=== PATIENT | female | born 1955 | race Two or more races ===

== ENCOUNTER → 2024-08-27 | Outpatient (CLI) | payer MEDICARE, MEDICAID, SELFPAY ==
[2024-08-27 16:36] LABS: Basophils # (Auto) 0.1 Thou/mm3 (0.0-0.2); Basophils % (Auto) 1 % (0-2.5); Eosinophils # (Auto) 0.2 Thou/mm3 (0.0-0.5); Eosinophils % (Auto) 3 % (0-10); Hematocrit 35.8 % (36.0-46.0); Immature Granulocytes % (Auto) 0 % (0-0); Lymphocytes % (Auto) 38 % (10-50); Mean Corpuscular HGB Conc 33.5 g/dl (31.0-37.0); Mean Corpuscular Hemoglobin 30.5 pg (25.0-35.0); Mean Corpuscular Volume 91 fL (80-100); Monocytes # (Auto) 0.3 Thou/mm3 (0.0-0.8); Monocytes % (Auto) 6 % (0-12); Neutrophils # (Auto) 2.7 Thou/mm3 (1.8-7.7); Neutrophils % (Auto) 52 % (37-80); Nucleated Red Blood Cell % 0 /100 WBC (0); Platelet Count 204 Thou/mm3 (140-440); RDW Standard Deviation 42.4 fL (36.4-46.3); Red Blood Count 3.94 Miln/mm3 (4.00-5.20); White Blood Count 5.2 Thou/mm3 (3.6-11.0)
[2024-08-27 17:04] LABS: Alanine Aminotransferase 20 U/L (10-49); Alkaline Phosphatase 48 U/L (46-116); Anion Gap 8 (7-16); Aspartate Amino Transferase 21 U/L (0-34); BUN/Creatinine Ratio 26 Ratio (12-20); Bilirubin,Direct < 0.1 mg/dL (0.0-0.3); Bilirubin,Total 0.3 mg/dL (0.3-1.2); Blood Urea Nitrogen 18 mg/dL (9-23); C-Reactive Protein < 0.4 mg/dL (0.0-0.9); Calcium 9.1 mg/dL (8.3-10.6); Carbon Dioxide 27.2 mMol/L (20.0-31.0); Chloride 105 mMol/L (98-107); Creatinine (Component) 0.7 mg/dL (0.6-1.3); Glucose 88 mg/dL (74-106); Osmolality,Calculated 280 (275-295); Potassium 3.9 mMol/L (3.4-5.1); Sodium 140 mMol/L (136-145); Total Protein 6.4 gm/dL (5.7-8.2); eGFR > 60 See Note
[2024-08-27 17:07] LABS: Ferritin 50 ng/mL (7.3-270.7)
[2024-08-27 17:31] LABS: Hepatitis A Antibody IgM Non Reactive (Non React); Hepatitis B Core Antibody IgM Non Reactive (Non React); Hepatitis B Surface Antigen Non Reactive (Non React); Hepatitis C Antibody Non Reactive (Non React)
[2024-08-27 18:06] LABS: Sed Rate (ESR) 8 mm/hr (0-30)
[2024-08-31 06:43] LABS: HIV Ag/Ab, 4th Gen NON-REACTIVE
== END | disposition home or self-care (01) ==
LOC: COPL 15:22
PROVIDERS: PCP Internal Medicine; Referring Provider Internal Medicine Gastroenterology; Visit Provider Internal Medicine Gastroenterology
DX: R13.19 Other dysphagia (principal)
CPT/HCPCS: 36415; 80048; 80074; 80076; 82728; 85025; 85610; 85652; 86140; 87389

== ENCOUNTER → 2024-09-04 | Outpatient (CLI) | payer MEDICARE, MEDICAID, SELFPAY ==
[2024-09-04 11:46] LABS: Quantiferon-TB* See Sep Rpt
[2024-09-11 06:55] LABS: Helicobacter pylori Ag, Stool* DETECTED (NOT DETECTED)
== END | disposition home or self-care (01) ==
PROVIDERS: PCP Internal Medicine; Referring Provider Internal Medicine Gastroenterology; Visit Provider Internal Medicine Gastroenterology
DX: R13.19 Other dysphagia (principal)
CPT/HCPCS: 86480; 87338

== ENCOUNTER 2025-04-27 23:57 | Emergency (ER) | payer MEDICARE, MEDICAID, SELFPAY ==
--- NOTE | 2025-04-28 | EKG_ITS ---
[facility] Test Date: 2025-04-28 Pat Name: ABDIEL MALONE Department: Room: - Gender: Female Cytologist: : 1955 Requested By: ED Temporary Provider Order Number: [id number] Reading MD: ED Temporary Provider Measurements Intervals [place] Rate: 84 P: 38 MN: 152 QRS: -24 QRSD: 159 T: 114 QT: 412 QTc: 488 Interpretive Statements SINUS RHYTHM LEFT BUNDLE BRANCH BLOCK [120+ ms QRS DURATION, 80+ ms Q/S IN V1/V2, 85+ ms R IN I/aVL/V5/V6] Compared to ECG 11/06/2021 16:13:45 Left bundle-branch block now present Sinus bradycardia no longer present /store/S0/[id number].pdf
[2025-04-28 00:04] VITALS: BP 200/98; BP 203/107; PULSE 82; RESP 19; TEMP 36.8; O2SAT 98
--- NOTE | 2025-04-28 00:12 | XR_ITS ---
Examination: PA chest single view Technique: Upright PA chest single view Date and time: April 28, 2025, 0026 hrs. Indications: Chest pain cardiac palpitations dizziness today. Findings: Normal heart size. Lungs are clear. The osseous structures are intact Impression: No active disease
--- NOTE | 2025-04-28 00:13 | EDNOTE_ITS ---
ED Dizzyness RME/HPI General Chief Complaint: Dizziness Stated Complaint: DIZZINESS,PALPITATIONS Time Seen by Provider: 04/28/25 00:02 Arrival date/time: 04/27/25 23:57 RME / HPI RME / HPI Narrative: 69-year-old female patient with significant history of hypertension, was brought in by family for evaluation regarding sudden onset of dizziness. Patient was about to leave the constitution party, and suddenly developed sudden onset of dizziness, ass ociated with palpitation and not feeling well. Patient denies any chest pain. Denies any focal neurologic deficit. Patient is ambulatory. Patient is only taking losartan. No medication was taken prior to ER visit. Related Data Home Medications ?Medication ?Instructions ?Recorded ?Confirmed No Known Home Medications 03/06/2402/22 Allergies Allergy/AdvReac Type Severity Reaction Status Date / Time Penicillins Allergy Intermediate Itching Verified 03/06/24 11:22 Review of Systems Review of Systems Narrative Review of Systems: Review of system reviewed and within normal limits except mentioned in HPI ED Exam Narrative Physical exam: VITAL SIGNS: Reviewed. GENERAL APPEARANCE: Alert and interactive, follows commands, no acute distress, HEAD AND FACE: Non-traumatic. ENT: PERRL, pink conjunctivitis, eyelid no trauma, Mucous membrane moist. NECK: Supple, nontender, no nuchal rigidity. CHEST: No tenderness, no crepitus, no paradoxical movement, no retractions. LUNGS: Clear, well ventilated, symmetric, no rales, no wheezing, no ronchi, no stridor, good breath sounds bilaterally. HEART: Regular rate, regular rhythm, no murmur, no gallops. ABDOMEN: Soft, positive bowel sounds, nondistended, no guarding, nontender, no rebound, no masses, RECTAL: Deferred. GENITAL: Deferred. NEUROLOGICAL: Gross motor function intact sensory function intact, Appropriate for age. MUSCULOSKELETAL: low back nontender, full range of motion. EXTREMITIES: Nontender, full range of motion. SKIN: Color pink, dry, no rash, no lacerations, no abrasions, no contusions. LYMPHATICS: Deferred. Course Quality Measures none Orders Category Date Time Status EKG (ED ONLY) *Do not use* NOW Care 04/28/25 00:[address] head/brain wo con Stat Exams 04/28/25 00:15 Taken EKG (ED Only) Stat Exams 04/28/25 00:00 Draft XR chest 1V Stat Exams 04/28/25 00:12 Taken B-Type Natriuretic Peptide Stat Lab 04/28/25 00:15 Completed CBC Stat Lab 04/28/25 00:15 Completed Comprehensive Metabolic Panel Stat Lab 04/28/25 00:15 Completed Free T3 Stat Lab 04/28/25 00:15 Completed Magnesium Stat Lab 04/28/25 00:15 Completed Partial Thromboplastin Time Stat Lab 04/28/25 00:15 Completed TSH [Thyroid Stimulating Hormone] Stat Lab 04/28/25 00:15 Completed Troponin I Stat Lab 04/28/25 00:15 Completed Urinalysis, C/S if Indicated Stat Lab 04/28/25 00:45 Completed Labetalol IV [Trandate IV] Med 04/28/25 00:15 Discontinued 10 mg IVP X1 ONE Vital Signs Vital signs: Vital Signs Temperature 98.2 F 04/28/25 00:04 Pulse Rate 82 04/28/25 00:04 Respiratory Rate 19 04/28/25 00:04 Blood Pressure 200/98 H 04/28/25 00:04 Pulse Oximetry (%) 98 04/28/25 00:04 Oxygen Delivery Method Room Air 04/28/25 00:04 Dizziness MDM Narrative MDM Narrative:: 69-year-old female patient with significant history of hypertension, was brought in by family for evaluation regarding sudden onset of dizziness. Patient was about to leave the constitution party, and suddenly developed sudden onset of dizziness, associated with palpitation and not feeling well. Patient denies any chest pain. Denies any focal neurologic deficit. Patient is ambulatory. Patient is only taking losartan. No medication was taken prior to ER visit. EKG shows sinus rhythm, ventricular rate of 84 bpm, no ST segment elevation depression noted. Patient's workup today all came back unremarkable. Urinalysis unremarkable troponin is normal. CT scan of the head came back normal. Chest x-ray also came back unremarkable. Patient received labetalol IV, on reevaluation patient told me that her symptoms started again no more dizziness ambulatory, latest blood pressure of 141/85 heart rate of 71. Patient was advised to follow-up with PCP this coming Tuesday and take her blood pressure medication daily. Patient data External records reviewed:: None Clinical information provided by:: patient Social determinants that could affect healthcare access:: none Patient has the following chronic illnesses:: Hypertension How is presenting disease/condition affected by chronic disease/condition?: exacerbated by Evaluation data The following diagnostics were reviewed and interpreted by me:: lab results, radiology exam(s) and EKG tracing(s) Lab and/or radiology exams considered but not ordered:: None Interpretation Summary: See results MDM Medications / Prescriptions Medications or Prescriptions considered but not ordered:: General Medication administrations:: Medication Administration History Discontinued Medications Labetalol HCl (Labetalol Inj 5 Mg/Ml Vial 20 Ml) 10 mg IVP X1 ONE Stop: 04/28/25 00:16 Last Admin: 04/28/25 01:05 Dose: 10 mg Documented By: CCT Labetalol IV Consultations Consultation(s) initiated? (list below): No Diagnosis Dizziness Differential Diagnosis: other (Dizziness, palpitation, hypertension, anxiety) Most likely diagnosis given after review of the tests above:: Hypertension, dizziness Admission Indicated Admission indicated?: not indicated Explain why admission is indicated or not indicated:: Stable Admission Request Was there a request for admission?: No Disposition Plan Disposition Plan: Discharge Discharge Attestation Discharge Attestation: The patient and all family members were given an opportunity to ask questions and understood the discharge instructions. Discharge instructions specifically effects, indications for sooner follow up or return to the emergency department, and the expected course of current diagnosis. Patient condition: Stable Discharge Plan Plan Patient Disposition: HOME (Self Care) Discharge Disposition comment: Stable Prescriptions/Referrals Prescriptions/Med Rec: No Action No Known Home Medications Problem List Clinical Impression: Dizziness, Hypertension Patient/Caregiver Discharge Instructions Discharge Activity: activity as tolerated Education Materials: ED High Blood Pressure ... Additional Instructions: Thank you for the opportunity for serving you today. You are stable for discharged . You are advised to: Follow-up with your PCP in 1 to 2 days Return to ED for worsening of symptoms Increase oral fluids Please take your blood pressure medication daily without any fail. Print Language: Irish Stand Alone Forms: Sherri Award Info., Patient Portal Info Letter PA/MARIE Supervising Physician JENNIFER/MARIE Supervising Physician: MD Suzanna
--- NOTE | 2025-04-28 00:15 | XR_ITS ---
Examination: CT brain head without contrast. 2-D sagittal coronal reconstructions Date and time of exam:April 28, 2025, 0025 hrs. Indications: Onset dizziness beginning one hour ago CTDI: vol (mGy):47.90 DLP: (mGycm):971 Technique: Multiple CT axial sections of the brain have been obtained, 5 mm slice thickness. Contrast has not been administered. 2-D sagittal, coronal reconstructions have been obtained Low dose protocols were performed. One or more of the following dose reduction techniques were used; automated exposure control, adjustment of the mA and/or KV according to patient size, use of iterative reconstruction technique. Findings: No significant ventricular enlargement. Intra-axial or extra-axial hemorrhage density is not seen. No mass effect or midline shift Basal cisterns are not remarkable. Fourth ventricle is midline. Cranial vault intact. Impression: Negative for acute hemorrhage, mass effect or midline shift Advise clinical correlation and follow-up accordingly
[2025-04-28 00:42] LABS: Basophils # (Auto) 0.0 Thou/mm3 (0.0-0.2); Basophils % (Auto) 1 % (0-2.5); Eosinophils # (Auto) 0.2 Thou/mm3 (0.0-0.5); Eosinophils % (Auto) 4 % (0-10); Hematocrit 38.6 % (36.0-46.0); Hemoglobin 12.9 g/dL (12.0-16.0); Immature Granulocytes Auto 0.00 Thou/mm3 (0.00-0.00); Lymphocytes # (Auto) 3.4 Thou/mm3 (1.0-4.8); Lymphocytes % (Auto) 49 % (10-50); Mean Corpuscular HGB Conc 33.4 g/dl (31.0-37.0); Mean Corpuscular Hemoglobin 31.0 pg (25.0-35.0); Mean Corpuscular Volume 93 fL (80-100); Monocytes # (Auto) 0.5 Thou/mm3 (0.0-0.8); Monocytes % (Auto) 8 % (0-12); Neutrophils # (Auto) 2.7 Thou/mm3 (1.8-7.7); Neutrophils % (Auto) 40 % (37-80); Nucleated Red Blood Cell # 0.00 Thou/mm3 (0.00-0.00); Nucleated Red Blood Cell % 0 /100 WBC (0); Platelet Count 188 Thou/mm3 (140-440); RDW Standard Deviation 42.7 fL (36.4-46.3); Red Blood Count 4.16 Miln/mm3 (4.00-5.20); White Blood Count 6.9 Thou/mm3 (3.6-11.0)
[2025-04-28 00:52] LABS: Collection Type, Urine Clean Catch; Squamous Epithelial Cell,Urine 0 /hpf (0-5)
[2025-04-28 00:53] VITALS: BP 193/95; PULSE 76; RESP 16; TEMP 37.2; O2SAT 100
[2025-04-28 00:53] LABS: Partial Thromboplastin Time 25.4 Seconds (22.0-36.0)
[2025-04-28 00:57] LABS: B-Type Natriuretic Peptide 22 pg/mL (0-100)
[2025-04-28 00:57] LABS: Bilirubin,Urine Negative (Negative); Blood,Urine 2+ (Negative); Clarity,Urine Clear (Clear/Hazy); Color,Urine Colorless (Lt Yel-Yel); Culture Indicated,Urine Not Indicated; Glucose, Urine Negative (Negative); Ketones,Urine Negative (Negative); Leukocyte Esterase,Urine Negative (Negative); Nitrite,Urine Negative (Negative); PH,Urine 7.0 (5.0-7.0); Protein,Urine Negative (Neg - Trace); RBC,Urine 4 /hpf (0-3); Specific Gravity,Urine 1.006 (1.001-1.035); Urobilinogen,Urine Negative mg/dL (0.0-1.0); WBC,Urine < 1 /hpf (0-5)
[2025-04-28 01:00] VITALS: PULSE 76
[2025-04-28 01:01] LABS: Alanine Aminotransferase 18 U/L (10-49); Albumin, Serum 4.5 gm/dL (3.4-4.8); Albumin/Globulin Ratio 1.9 (1.2-2.2); Alkaline Phosphatase 53 U/L (46-116); Anion Gap 9 (7-16); Aspartate Amino Transferase 23 U/L (0-34); BUN/Creatinine Ratio 20 Ratio (12-20); Bilirubin,Total 0.4 mg/dL (0.3-1.2); Blood Urea Nitrogen 16 mg/dL (9-23); Calcium 9.3 mg/dL (8.3-10.6); Calcium (Corrected) 9.3 mg/dL (8.5-10.1); Carbon Dioxide 26.9 mMol/L (20.0-31.0); Chloride 107 mMol/L (98-107); Creatinine (Component) 0.8 mg/dL (0.6-1.3); Free T3 2.9 pg/mL (2.3-4.2); Globulin 2.4 gm/dL (2.3-3.5); Glucose 118 mg/dL (74-106); Magnesium 2.0 mg/dL (1.6-2.6); Osmolality,Calculated 287 (275-295); Potassium 3.8 mMol/L (3.4-5.1); Sodium 143 mMol/L (136-145); Thyroid Stimulating Hormone 3.89 uIU/mL (0.55-4.78); Total Protein 6.9 gm/dL (5.7-8.2); Troponin I < 0.020 ng/mL (0.0-0.045); eGFR > 60 See Note
[2025-04-28 01:05] VITALS: BP 193/95; PULSE 76
[2025-04-28] MEDS: LABETALOL INJ 5 MG/ML VIAL 20 ML 10 MG IVP (01:05)
[2025-04-28 01:12] VITALS: BP 141/85; PULSE 71; RESP 17; O2SAT 100
--- NOTE | 2025-04-28 01:38 | PRELIM_ITS ---
CT scan of the head without intravenous contrast (axial sections with sagittal and coronal reformats) April 28, 2025 0039 hours Clinical history: Dizziness No prior study is available for comparison. Findings: There is no evidence of intracranial hemorrhage, mass effect or midline shift. There are mild periventricular and subcortical white matter hypodensities, likely representing chronic small vessel ischemia. There is mild volume loss. The calvarium is unremarkable. The mastoid air cells and the visualized paranasal sinuses are clear. Impression: No evidence of intracranial hemorrhage, mass effect or midline shift. Mild periventricular chronic small vessel ischemia and volume loss. Report Electronically Signed By: Steve Garvey 04/28/2025 1:38:01 AM [EST]
[2025-04-28 02:10] VITALS: BP 160/93; PULSE 67; RESP 18; TEMP 37.2; O2SAT 100
--- NOTE | 2025-04-28 02:15 | PC.NURSE ---
PA Katia aware BP 160/93 HR 67, per PA ok to discharge home
== END 2025-04-28 02:20 | disposition home or self-care (01) ==
LOC: SERX 04-28 02:32
PROVIDERS: Nurse Practitioner Family; Emergency Provider Emergency Medicine; PCP Internal Medicine
DX: R42 Dizziness and giddiness (principal); R00.2 Palpitations; I10 Essential (primary) hypertension; Z88.0 Allergy status to penicillin
CPT/HCPCS: 36415; 70450; 71045; 80053; 81001; 83735; 83880; 84443; 84481; 84484; 85025; 85730; 93005; 96374; 99284; J3490; J1920